=== PATIENT | female | born 1935 | race African-American/Black ===

== ENCOUNTER 2019-04-28 23:02 | Inpatient (IN) | payer MEDICARE, MEDICAID ==
[~2019-04-28] VITALS: Ht 172.7 cm; Wt 65.3 kg
[2019-04-28] MEDS ORDERED: SODIUM CHLORIDE 0.9% 1,000 ML IV ONE (23:42)
[2019-04-29] VITALS (8 sets, daily range): BP systolic 140–158; BP diastolic 68–89
[2019-04-29 00:35] LABS: BG BASE EXCESS 2.2 mmol/L (-2.0-2.0); BG CARBOXYHEMOGLOBIN 0.9 % (0.5-1.5); BG DEOXYHEMOGLOBIN 3.4 % (0.0-5.0); BG FRACTION INSPIRED OXYGEN 21; BG HCO3 ACT 26.9 mmol/L (22.0-26.0); BG METHEMOGLOBIN 0.2 % (0.0-1.5); BG OXYGEN SATURATION 96.6 % (92.0-98.5); BG OXYHEMOGLOBIN 95.5 % (94.0-97.0); BG PCO2 42.6 mmHg (35.0-45.0); BG PH 7.419 (7.350-7.450); BG PO2 79.1 mmHg (75.0-100.0); BG SAMPLE SITE RIGHT RADIAL; BG TOTAL HEMOGLOBIN 12.6 g/dL (12.0-18.0); BG VENT MODE ROOM AIR
[2019-04-29 01:18] LABS: EOSINOPHILS % 3.3 % (0.0-5.0); HEMATOCRIT. 35.7 % (36.0-48.0); HEMOGLOBIN. 11.7 g/dL (12.0-16.0); LYMPHOCYTES % 16.8 % (20.0-50.0); MEAN CORPUSCULAR VOLUME 85.3 fL (81.0-99.0); MEAN PLATELET VOLUME 8.5 fl (7.4-10.4); MONOCYTES % 8.5 % (2.0-8.0); NEUTROPHILS % 70.4 % (40.0-76.0); PLATELET 305 x1000/uL (130-400); RED BLOOD CELL COUNT 4.19 mill/uL (4.2-5.4); RED CELL DISTRIBUTION WIDTH 15.5 % (11.6-14.6)
[2019-04-29 01:24] LABS: CHLORIDE 107 mEq/L (98-107)
[2019-04-29] MEDS ORDERED: VANCOMYCIN 1 G PREMIX 200 ML IV ONE (02:00)
[2019-04-29] MEDS ORDERED: PIPERACILLIN/TAZ 3.375G PREMIX 50 ML IV ONE (02:00)
[2019-04-29 02:03] LABS: CLARITY URINE CLEAR (CLEAR); COLOR URINE YELLOW (YELLOW); KETONES URINE NEGATIVE (NEGATIVE); LEUKOCYTE ESTERASE URINE 1+ (NEGATIVE); NITRITE URINE POSITIVE (NEGATIVE); OCCULT BLOOD URINE NEGATIVE (NEGATIVE); PROTEIN URINE NEGATIVE (NEGATIVE); SPECIFIC GRAVITY URINE 1.013 (1.005-1.030)
[2019-04-29] MEDS ORDERED: ACETAMINOPHEN 325MG TABLET PO PRN (12:45)
[2019-04-29] MEDS ORDERED: ONDANSETRON HCL 4MG/2ML INJ IV PRN (12:45)
[2019-04-29] MEDS ORDERED: DEXTROSE 50% WATER 50ML SYRINGE IV PRN ×2 (12:45)
[2019-04-29] MEDS ORDERED: MAGNESIUM/ALUMINUM HYDROXIDE/SIMETHICONE 30ML UDC PO PRN (12:45)
[2019-04-29] MEDS ORDERED: HYDROCODONE/ACETAMINOPHEN 5/325MG TABLET PO PRN (12:45)
[2019-04-29] MEDS: INSULIN LISPRO 100 UNITS/ML SUBCUT SCH ×3 (13:00→21:00)
[2019-04-29] MEDS: BLOOD SUGAR DIAGNOSTIC STRIP TEST SCH ×3 (13:23→21:08)
[2019-04-29] MEDS: ENOXAPARIN 40MG/0.4ML SYR SUBCUT SCH (13:23)
[2019-04-29] MEDS: SODIUM CHLORIDE 0.9% 1,000 ML IV SCH (13:23)
[2019-04-29] MEDS ORDERED: LEVOFLOXACIN 500MG PREMIX 100 ML IV SCH ×2 (17:15→20:00)
[2019-04-29 19:56] LABS: *AMPHETAMINES SCREEN URINE NEGATIVE (NEGATIVE); *BARBITURATES SCREEN URINE NEGATIVE (NEGATIVE); *BENZODIAZEPINES SCREEN URINE NEGATIVE (NEGATIVE); *COCAINE SCREEN URINE NEGATIVE (NEGATIVE)
[2019-04-29 19:57] LABS: CANNABINOID URINE SCREEN NEGATIVE (NEGATIVE); METHADONE URINE SCREEN NEGATIVE (NEGATIVE); OPIATES URINE SCREEN NEGATIVE (NEGATIVE); PHENCYCLIDINE URINE SCREEN NEGATIVE (NEGATIVE)
[2019-04-30] VITALS (12 sets, daily range): BP systolic 121–169; BP diastolic 69–94
[2019-04-30] MEDS: CLONIDINE 0.1MG TABLET PO PRN (04:47)
[2019-04-30] MEDS: SODIUM CHLORIDE 0.9% 1,000 ML IV SCH (05:41)
[2019-04-30 06:28] LABS: EOSINOPHILS % 3.9 % (0.0-5.0); HEMATOCRIT. 36.4 % (36.0-48.0); HEMOGLOBIN. 11.8 g/dL (12.0-16.0); LYMPHOCYTES % 21.7 % (20.0-50.0); MEAN CORPUSCULAR VOLUME 86.1 fL (81.0-99.0); MEAN PLATELET VOLUME 8.6 fl (7.4-10.4); MONOCYTES % 8.9 % (2.0-8.0); NEUTROPHILS % 64.5 % (40.0-76.0); PLATELET 318 x1000/uL (130-400); RED BLOOD CELL COUNT 4.23 mill/uL (4.2-5.4); RED CELL DISTRIBUTION WIDTH 15.7 % (11.6-14.6)
[2019-04-30 06:30] LABS: CHLORIDE 107 mEq/L (98-107)
[2019-04-30 06:41] LABS: PHOSPHORUS 2.7 mg/dL (2.5-4.9)
[2019-04-30 06:42] LABS: LDL CHOLESTEROL 118 mg/dL (5-100)
[2019-04-30 06:43] LABS: HDL CHOLESTEROL 62 mg/dL (40-59)
[2019-04-30] MEDS: BLOOD SUGAR DIAGNOSTIC STRIP TEST SCH ×4 (07:49→20:44)
[2019-04-30] MEDS: INSULIN LISPRO 100 UNITS/ML SUBCUT SCH ×4 (07:50→20:43)
[2019-04-30] MEDS: ENOXAPARIN 40MG/0.4ML SYR SUBCUT SCH (09:22)
[2019-04-30] MEDS ORDERED: INFLUENZA VIRUS VACCINE(AFLURIA) 0.5ML SYR IM ONE (10:00)
[2019-04-30] MEDS: LEVOFLOXACIN 250MG PREMIX 50 ML IV SCH (11:18)
[2019-04-30] MEDS: AMLODIPINE 5MG TABLET PO SCH (12:43)
[2019-04-30] MEDS: CLONIDINE 0.1MG TABLET PO SCH ×2 (14:08→20:44)
[2019-04-30] MEDS: MEMANTINE HCL 10MG TABLET PO SCH (20:52)
[2019-05-01] VITALS (12 sets, daily range): BP systolic 118–183; BP diastolic 71–99
[2019-05-01] MEDS: CLONIDINE 0.1MG TABLET PO PRN (03:39)
[2019-05-01 05:56] LABS: CHLORIDE 107 mEq/L (98-107)
[2019-05-01 06:13] LABS: EOSINOPHILS % 3.2 % (0.0-5.0); HEMATOCRIT. 33.6 % (36.0-48.0); HEMOGLOBIN. 10.8 g/dL (12.0-16.0); LYMPHOCYTES % 23.4 % (20.0-50.0); MEAN CORPUSCULAR HEMOGLOBIN 27.5 pg (28.0-32.0); MEAN CORPUSCULAR VOLUME 85.7 fL (81.0-99.0); MEAN PLATELET VOLUME 8.4 fl (7.4-10.4); MONOCYTES % 10.7 % (2.0-8.0); NEUTROPHILS % 61.7 % (40.0-76.0); PLATELET 312 x1000/uL (130-400); RED BLOOD CELL COUNT 3.92 mill/uL (4.2-5.4); RED CELL DISTRIBUTION WIDTH 15.4 % (11.6-14.6)
[2019-05-01] MEDS: CLONIDINE 0.1MG TABLET PO SCH ×3 (06:15→21:08)
[2019-05-01] MEDS: INSULIN LISPRO 100 UNITS/ML SUBCUT SCH ×4 (08:00→21:00)
[2019-05-01] MEDS: MEMANTINE HCL 10MG TABLET PO SCH ×2 (08:02→20:36)
[2019-05-01] MEDS: AMLODIPINE 5MG TABLET PO SCH (08:02)
[2019-05-01] MEDS: BLOOD SUGAR DIAGNOSTIC STRIP TEST SCH ×4 (08:02→21:07)
[2019-05-01] MEDS: PANTOPRAZOLE 40MG DR TABLET PO SCH (08:02)
[2019-05-01] MEDS: ENOXAPARIN 40MG/0.4ML SYR SUBCUT SCH ×3 (08:03→08:20)
[2019-05-01] MEDS: LEVOFLOXACIN 250MG PREMIX 50 ML IV SCH (10:26)
[2019-05-01] MEDS: METRONIDAZOLE 500 MG PREMIX 100 ML IV SCH ×2 (11:55→20:36)
[2019-05-02] VITALS (16 sets, daily range): BP systolic 88–152; BP diastolic 53–88
[2019-05-02] MEDS: METRONIDAZOLE 500 MG PREMIX 100 ML IV SCH ×3 (04:30→20:48)
[2019-05-02] MEDS: PANTOPRAZOLE 40MG DR TABLET PO SCH (06:13)
[2019-05-02] MEDS: CLONIDINE 0.1MG TABLET PO SCH ×3 (06:13→22:12)
[2019-05-02] MEDS: BLOOD SUGAR DIAGNOSTIC STRIP TEST SCH ×4 (06:19→20:41)
[2019-05-02 07:17] LABS: BASOPHILS % 1.5 % (0.0-2.0); EOSINOPHILS % 4.8 % (0.0-5.0); HEMATOCRIT. 36.6 % (36.0-48.0); LYMPHOCYTES % 27.3 % (20.0-50.0); MEAN CORPUSCULAR HEMOGLOBIN 28.4 pg (28.0-32.0); MEAN CORPUSCULAR VOLUME 86.7 fL (81.0-99.0); MEAN PLATELET VOLUME 8.2 fl (7.4-10.4); MONOCYTES % 10.6 % (2.0-8.0); NEUTROPHILS % 55.8 % (40.0-76.0); PLATELET 293 x1000/uL (130-400); RED BLOOD CELL COUNT 4.22 mill/uL (4.2-5.4); RED CELL DISTRIBUTION WIDTH 15.7 % (11.6-14.6)
[2019-05-02 07:51] LABS: CHLORIDE 106 mEq/L (98-107)
[2019-05-02] MEDS: MEMANTINE HCL 10MG TABLET PO SCH ×2 (09:26→20:48)
[2019-05-02] MEDS: AMLODIPINE 5MG TABLET PO SCH (09:27)
[2019-05-02] MEDS: ENOXAPARIN 40MG/0.4ML SYR SUBCUT SCH (09:27)
[2019-05-02] MEDS: INSULIN LISPRO 100 UNITS/ML SUBCUT SCH ×3 (12:29→20:41)
[2019-05-02] MEDS: LEVOFLOXACIN 250MG PREMIX 50 ML IV SCH (12:31)
[2019-05-03] VITALS (12 sets, daily range): BP systolic 96–131; BP diastolic 36–79
[2019-05-03] MEDS: METRONIDAZOLE 500 MG PREMIX 100 ML IV SCH ×3 (03:22→19:26)
[2019-05-03] MEDS: CLONIDINE 0.1MG TABLET PO SCH ×3 (05:28→21:08)
[2019-05-03 07:22] LABS: BASOPHILS % 1.2 % (0.0-2.0); EOSINOPHILS % 5.8 % (0.0-5.0); HEMATOCRIT. 33.8 % (36.0-48.0); LYMPHOCYTES % 23.6 % (20.0-50.0); MEAN CORPUSCULAR HEMOGLOBIN 28.5 pg (28.0-32.0); MEAN CORPUSCULAR VOLUME 88.2 fL (81.0-99.0); MEAN PLATELET VOLUME 8.2 fl (7.4-10.4); MONOCYTES % 10.5 % (2.0-8.0); NEUTROPHILS % 58.9 % (40.0-76.0); PLATELET 274 x1000/uL (130-400); RED BLOOD CELL COUNT 3.84 mill/uL (4.2-5.4); RED CELL DISTRIBUTION WIDTH 15.9 % (11.6-14.6)
[2019-05-03] MEDS: BLOOD SUGAR DIAGNOSTIC STRIP TEST SCH ×4 (07:48→21:00)
[2019-05-03] MEDS: INSULIN LISPRO 100 UNITS/ML SUBCUT SCH ×4 (07:48→21:00)
[2019-05-03 07:50] LABS: CHLORIDE 107 mEq/L (98-107)
[2019-05-03] MEDS: MEMANTINE HCL 10MG TABLET PO SCH ×2 (08:56→21:01)
[2019-05-03] MEDS: FAMOTIDINE 20MG TABLET PO SCH (08:56)
[2019-05-03] MEDS: ENOXAPARIN 40MG/0.4ML SYR SUBCUT SCH (08:57)
[2019-05-03] MEDS: AMLODIPINE 5MG TABLET PO SCH (08:57)
[2019-05-03] MEDS: LEVOFLOXACIN 250MG PREMIX 50 ML IV SCH (10:30)
[2019-05-04] VITALS (11 sets, daily range): BP systolic 105–180; BP diastolic 54–105
[2019-05-04] MEDS: METRONIDAZOLE 500 MG PREMIX 100 ML IV SCH ×2 (04:23→12:48)
[2019-05-04] MEDS: CLONIDINE 0.1MG TABLET PO PRN (04:24)
[2019-05-04] MEDS: CLONIDINE 0.1MG TABLET PO SCH ×2 (05:29→15:01)
[2019-05-04] MEDS: BLOOD SUGAR DIAGNOSTIC STRIP TEST SCH ×3 (07:30→17:30)
[2019-05-04] MEDS: INSULIN LISPRO 100 UNITS/ML SUBCUT SCH ×3 (08:00→17:40)
[2019-05-04] MEDS: AMLODIPINE 5MG TABLET PO SCH (09:12)
[2019-05-04] MEDS: MEMANTINE HCL 10MG TABLET PO SCH (09:12)
[2019-05-04] MEDS: FAMOTIDINE 20MG TABLET PO SCH (09:12)
[2019-05-04] MEDS: ENOXAPARIN 40MG/0.4ML SYR SUBCUT SCH (09:13)
[2019-05-04] MEDS: LEVOFLOXACIN 250MG PREMIX 50 ML IV SCH (11:39)
[2019-05-04 14:36] LABS: BASOPHILS % 1.1 % (0.0-2.0); EOSINOPHILS % 3.1 % (0.0-5.0); HEMATOCRIT. 34.6 % (36.0-48.0); HEMOGLOBIN. 11.3 g/dL (12.0-16.0); LYMPHOCYTES % 18.5 % (20.0-50.0); MEAN CORPUSCULAR VOLUME 85.6 fL (81.0-99.0); MEAN PLATELET VOLUME 8.3 fl (7.4-10.4); MONOCYTES % 9.3 % (2.0-8.0); PLATELET 274 x1000/uL (130-400); RED BLOOD CELL COUNT 4.04 mill/uL (4.2-5.4); RED CELL DISTRIBUTION WIDTH 16.1 % (11.6-14.6)
[2019-05-04 14:37] LABS: CHLORIDE 107 mEq/L (98-107)
== END 2019-05-04 19:22 | DRG 871 ==
LOC: ER 23:02 → EDBEDREQ 04-29 02:18 → EDBEDREQTM 04-29 02:18 → EDBEDREQDT 04-29 02:18 → ENRESERV 04-29 07:18 → 5EST 04-29 08:51
PROVIDERS: ADMIT Family Medicine Adult Medicine; ATTEND Family Medicine Adult Medicine
PROC: 4A00X4Z Measurement of Central Nervous Electrical Activity, External Approach (ICD-10-PCS; principal; 2019-05-01)
DX: A41.9 Sepsis, unspecified organism (principal); J18.9 Pneumonia, unspecified organism; J96.00 Acute respiratory failure, unspecified whether with hypoxia or hypercapnia; G93.41 Metabolic encephalopathy; G82.50 Quadriplegia, unspecified; N39.0 Urinary tract infection, site not specified; E11.9 Type 2 diabetes mellitus without complications; I10 Essential (primary) hypertension; F03.90 Unspecified dementia, unspecified severity, without behavioral disturbance, psychotic disturbance, mood disturbance, and anxiety; E11.36 Type 2 diabetes mellitus with diabetic cataract; E78.00 Pure hypercholesterolemia, unspecified; E78.5 Hyperlipidemia, unspecified; H54.8 Legal blindness, as defined in USA; R13.10 Dysphagia, unspecified; Z82.49 Family history of ischemic heart disease and other diseases of the circulatory system; Z98.49 Cataract extraction status, unspecified eye
CPT/HCPCS: 36415; 36600; 51702; 70551; 71045; 80048; 80061; 80305; 81003; 82140; 82375; 82805; 82962; 83036; 83605; 83735; 84100; 84145; 84443; 84484; 90686; 92610; 93005; 93970; 96361; 96366; 96368; 97162; 97166; 99291; A6261; J1650; J1815; J1956; J2543; J3370; J3490; J7030

== ENCOUNTER 2022-12-24 16:34 | Inpatient (IN) | payer MEDICARE, MEDICAID ==
[~2022-12-24] VITALS: Ht 165.1 cm; Wt 61.7 kg
[2022-12-24] MEDS ORDERED: SODIUM CHLORIDE 0.9% 1,000 ML IV ONE (18:15)
[2022-12-24 19:06] LABS: EOSINOPHILS % 2.8 % (0.0-5.0); HEMATOCRIT. 38.5 % (36.0-48.0); HEMOGLOBIN. 12.3 g/dL (12.0-16.0); LYMPHOCYTES % 34.2 % (20.0-50.0); MEAN CORPUSCULAR HEMOGLOBIN 27.7 pg (28.0-32.0); MEAN CORPUSCULAR VOLUME 86.6 fL (81.0-99.0); MEAN PLATELET VOLUME 9.1 fl (7.4-10.4); MONOCYTES % 9.2 % (2.0-8.0); NEUTROPHILS % 52.8 % (40.0-76.0); PLATELET 233 x1000/uL (130-400); RED BLOOD CELL COUNT 4.45 mill/uL (4.2-5.4); RED CELL DISTRIBUTION WIDTH 16.3 % (11.6-14.6)
[2022-12-24 19:12] LABS: CHLORIDE 108 mEq/L (98-107)
[2022-12-24 19:14] LABS: PROTHROMBIN TIME 10.5 sec (9.6-11.0)
[2022-12-24 19:26] LABS: CLARITY URINE CLOUDY (CLEAR); COLOR URINE YELLOW (YELLOW); KETONES URINE NEGATIVE (NEGATIVE); LEUKOCYTE ESTERASE URINE 1+ (NEGATIVE); NITRITE URINE POSITIVE (NEGATIVE); OCCULT BLOOD URINE 2+ (NEGATIVE); PH URINE 5.5 (4.5-8.0); PROTEIN URINE NEGATIVE (NEGATIVE)
[2022-12-24] MEDS: CEFTRIAXONE 1GM PREMIX 50 ML IV ONE (20:47)
[2022-12-25] MEDS ORDERED: HYDRALAZINE 20MG/ML VIAL IV PRN (00:45)
[2022-12-25] MEDS ORDERED: CEFTRIAXONE 1GM PREMIX 50 ML IV SCH (02:00)
[2022-12-25] MEDS ORDERED: ONDANSETRON HCL 4MG/2ML INJ IV PRN (02:00)
[2022-12-25] MEDS ORDERED: DIPHENHYDRAMINE 50MG/ML VIAL IV PRN (02:00)
[2022-12-25] MEDS ORDERED: GUAIFENESIN 200MG/10ML SUGAR FREE UDC PO PRN (02:00)
[2022-12-25] MEDS ORDERED: ACETAMINOPHEN 325MG TABLET PO PRN ×2 (02:00)
[2022-12-25] MEDS ORDERED: MVI, ADULT NO.1 10 ML, FOLIC ACID 1 MG, THIAMINE HCL 100 MG in SODIUM CHLORIDE 0.9% 1,0... IV NR ×4 (02:00)
[2022-12-25] MEDS ORDERED: IPRATROPIUM/ALBUTEROL 0.5-3(2.5)MG/3ML NEB NEB PRN (02:00)
[2022-12-25] MEDS ORDERED: MAGNESIUM/ALUMINUM HYDROXIDE/SIMETHICONE 30ML UDC PO PRN (02:00)
[2022-12-25] MEDS: CLONIDINE 0.1MG TABLET PO PRN (03:54)
[2022-12-25 08:00] VITALS: BP 155/78; PULSE 78; PULSE 83; RESP 18; TEMP 97.6
[2022-12-25] MEDS ORDERED: LOSARTAN POTASSIUM 50 MG TABLET PO SCH (09:00)
[2022-12-25] MEDS: AMLODIPINE 5MG TABLET PO SCH (09:36)
[2022-12-25] MEDS: DOCUSATE SODIUM 100MG CAPSULE PO SCH ×2 (09:37→17:24)
[2022-12-25] MEDS: ASPIRIN 81MG EC TABLET PO SCH (09:37)
[2022-12-25] MEDS: ENOXAPARIN 40MG/0.4ML SYR SUBCUT SCH (09:38)
[2022-12-25] MEDS ORDERED: CEFTRIAXONE 1,000 MG in DEXTROSE 5% WATER 50 ML IV SCH (10:00)
[2022-12-25 12:00] VITALS: BP 126/84; PULSE 89; RESP 14; TEMP 97
[2022-12-25 16:00] VITALS: BP 107/51; PULSE 67; RESP 18; TEMP 96.8
[2022-12-25 20:00] VITALS: BP 136/60; PULSE 59; RESP 20; TEMP 97.5
[2022-12-26] VITALS: BP 129/65; PULSE 61; RESP 20; TEMP 98.2
[2022-12-26] MEDS: CEFTRIAXONE 1,000 MG in DEXTROSE 5% WATER 50 ML IV SCH ×2 (01:11→20:56)
[2022-12-26 04:00] VITALS: BP 155/56; PULSE 63; RESP 18; TEMP 98.2
[2022-12-26 08:00] VITALS: BP 182/90; PULSE 61; RESP 18; TEMP 95
[2022-12-26] MEDS: DOCUSATE SODIUM 100MG CAPSULE PO SCH ×2 (09:00→17:03)
[2022-12-26] MEDS: ASPIRIN 81MG EC TABLET PO SCH (09:00)
[2022-12-26] MEDS: MEGESTROL ACETATE 400 MG/10 ML UDC PO SCH ×2 (09:00→17:02)
[2022-12-26] MEDS: AMLODIPINE 5MG TABLET PO SCH (09:00)
[2022-12-26] MEDS: LOSARTAN POTASSIUM 50 MG TABLET PO SCH (09:00)
[2022-12-26] MEDS: HYDRALAZINE 20MG/ML VIAL IV PRN (09:37)
[2022-12-26] MEDS: ENOXAPARIN 40MG/0.4ML SYR SUBCUT SCH (09:37)
[2022-12-26 12:00] VITALS: BP 133/68; PULSE 66; RESP 18; TEMP 99.1
[2022-12-26] MEDS: DEXT 5%/0.9% NACL 1,000 ML IV SCH (13:12)
[2022-12-26 16:00] VITALS: BP 117/84; PULSE 78; RESP 18; TEMP 98.6
[2022-12-27] VITALS: BP 160/85; PULSE 64; RESP 17; TEMP 97.2
[2022-12-27 04:00] VITALS: BP 190/69; PULSE 84; RESP 17; TEMP 97.5
[2022-12-27] MEDS: HYDRALAZINE 20MG/ML VIAL IV PRN (04:31)
[2022-12-27 06:42] LABS: BASOPHILS % 0.8 % (0.0-2.0); EOSINOPHILS % 2.7 % (0.0-5.0); HEMATOCRIT. 39.6 % (36.0-48.0); LYMPHOCYTES % 23.7 % (20.0-50.0); MEAN CORPUSCULAR HEMOGLOBIN 27.7 pg (28.0-32.0); MEAN CORPUSCULAR VOLUME 84.3 fL (81.0-99.0); MEAN PLATELET VOLUME 10.2 fl (7.4-10.4); MONOCYTES % 6.2 % (2.0-8.0); NEUTROPHILS % 66.6 % (40.0-76.0); PLATELET 252 x1000/uL (130-400); RED CELL DISTRIBUTION WIDTH 15.8 % (11.6-14.6)
[2022-12-27 06:44] LABS: PROTHROMBIN TIME 10.8 sec (9.6-11.0)
[2022-12-27 06:52] LABS: CHLORIDE 111 mEq/L (98-107)
[2022-12-27 08:00] VITALS: BP 166/75; PULSE 70; RESP 20; TEMP 97.5
[2022-12-27] MEDS: ASPIRIN 81MG EC TABLET PO SCH (09:06)
[2022-12-27] MEDS: MEGESTROL ACETATE 400 MG/10 ML UDC PO SCH ×2 (09:06→17:59)
[2022-12-27] MEDS: AMLODIPINE 5MG TABLET PO SCH (09:07)
[2022-12-27] MEDS: DOCUSATE SODIUM 100MG CAPSULE PO SCH ×2 (09:07→17:59)
[2022-12-27] MEDS: ENOXAPARIN 40MG/0.4ML SYR SUBCUT SCH (09:07)
[2022-12-27] MEDS: LOSARTAN POTASSIUM 50 MG TABLET PO SCH (09:07)
[2022-12-27 12:00] VITALS: BP 165/74; PULSE 60; RESP 20; TEMP 98
[2022-12-27] MEDS ORDERED: POTASSIUM CHLORIDE INJ 40 MEQ in DEXT 5% WATER 250 ML IV NR (12:00)
[2022-12-27] MEDS: CLONIDINE 0.1MG TABLET PO PRN (14:23)
[2022-12-27 16:00] VITALS: BP 156/80; PULSE 72; RESP 20; TEMP 97.5
[2022-12-27 20:00] VITALS: BP 148/54; PULSE 53; RESP 16; TEMP 96.9
[2022-12-27] MEDS: CEFTRIAXONE 1,000 MG in DEXTROSE 5% WATER 50 ML IV SCH (21:11)
[2022-12-27] MEDS: DEXT 5%/0.9% NACL 1,000 ML IV SCH (21:12)
[2022-12-28] VITALS: BP 171/60; PULSE 53; RESP 18; TEMP 96.8
[2022-12-28 03:55] LABS: BASOPHILS % 0.6 % (0.0-2.0); EOSINOPHILS % 1.2 % (0.0-5.0); HEMATOCRIT. 38.1 % (36.0-48.0); HEMOGLOBIN. 12.3 g/dL (12.0-16.0); LYMPHOCYTES % 13.2 % (20.0-50.0); MEAN CORPUSCULAR HEMOGLOBIN 27.2 pg (28.0-32.0); MEAN CORPUSCULAR VOLUME 84.5 fL (81.0-99.0); MEAN PLATELET VOLUME 9.6 fl (7.4-10.4); MONOCYTES % 9.1 % (2.0-8.0); NEUTROPHILS % 75.9 % (40.0-76.0); PLATELET 250 x1000/uL (130-400); RED BLOOD CELL COUNT 4.51 mill/uL (4.2-5.4)
[2022-12-28 03:59] LABS: CHLORIDE 112 mEq/L (98-107)
[2022-12-28 04:00] VITALS: BP 162/57; PULSE 52; RESP 16; TEMP 96.8
[2022-12-28 04:09] LABS: PROTHROMBIN TIME 10.6 sec (9.6-11.0)
[2022-12-28 08:02] VITALS: BP 184/71; PULSE 65; RESP 18; TEMP 97.5
[2022-12-28] MEDS: AMLODIPINE 5MG TABLET PO SCH (08:41)
[2022-12-28] MEDS: LOSARTAN POTASSIUM 50 MG TABLET PO SCH (08:41)
[2022-12-28] MEDS: MEGESTROL ACETATE 400 MG/10 ML UDC PO SCH ×2 (08:42→16:52)
[2022-12-28] MEDS: DOCUSATE SODIUM 100MG CAPSULE PO SCH ×2 (08:42→16:52)
[2022-12-28 12:00] VITALS: BP 136/72; PULSE 62; RESP 18; TEMP 97.7
[2022-12-28] MEDS ORDERED: PROPOFOL 200MG/20ML VIAL IV ONE (12:47)
[2022-12-28] MEDS: DEXT 5%/0.9% NACL 1,000 ML IV SCH (12:49)
[2022-12-28] MEDS ORDERED: CEFAZOLIN SODIUM 1000MG/VIAL ONE (13:18)
[2022-12-28] MEDS ORDERED: EPHEDRINE SULFATE 50MG/ML VIAL ONE (13:18)
[2022-12-28 16:00] VITALS: BP 185/62; PULSE 55; RESP 18; TEMP 97.4
[2022-12-28] MEDS: HYDRALAZINE 20MG/ML VIAL IV PRN (16:52)
[2022-12-28] MEDS: CEFTRIAXONE 1,000 MG in DEXTROSE 5% WATER 50 ML IV SCH (19:53)
[2022-12-28 20:00] VITALS: BP 138/61; PULSE 63; RESP 16; TEMP 96.9
[2022-12-29] VITALS: BP 129/58; PULSE 76; RESP 16; TEMP 96.9
[2022-12-29] MEDS: DEXT 5%/0.9% NACL 1,000 ML IV SCH ×2 (03:10→17:15)
[2022-12-29 04:00] VITALS: BP 129/62; PULSE 52; RESP 16; TEMP 96.8
[2022-12-29 08:00] VITALS: BP 144/74; PULSE 72; RESP 18; TEMP 97.4
[2022-12-29] MEDS: LOSARTAN POTASSIUM 50 MG TABLET PO SCH (08:46)
[2022-12-29] MEDS: DOCUSATE SODIUM 100MG CAPSULE PO SCH ×2 (08:46→17:14)
[2022-12-29] MEDS: ASPIRIN 81MG EC TABLET PO SCH (08:46)
[2022-12-29] MEDS: ENOXAPARIN 40MG/0.4ML SYR SUBCUT SCH (08:47)
[2022-12-29] MEDS: MEGESTROL ACETATE 400 MG/10 ML UDC PO SCH ×2 (08:47→17:14)
[2022-12-29] MEDS: AMLODIPINE 5MG TABLET PO SCH (08:47)
[2022-12-29 12:00] VITALS: BP 154/73; PULSE 71; RESP 18; TEMP 97.8
[2022-12-29 15:48] VITALS: BP 154/73; PULSE 71; TEMP 97.8; O2SAT 99
[2022-12-29 16:00] VITALS: BP 153/78; PULSE 83; RESP 18; TEMP 98.2
== END 2022-12-29 18:49 | DRG 377 ==
LOC: ER 16:34 → EDBEDREQTM 19:17 → EDBEDREQSVC 19:17 → EDBEDREQ 19:17 → EDBEDREQSVC 21:48 → MICUSO 12-25 00:07 → 8WST 12-25 08:13
PROVIDERS: ADMIT Internal Medicine; ATTEND Internal Medicine
PROC: 0DJ68ZZ Inspection of Stomach, Via Natural or Artificial Opening Endoscopic (ICD-10-PCS; principal; 2022-12-28)
PROC: 0DH63UZ Insertion of Feeding Device into Stomach, Percutaneous Approach (ICD-10-PCS; 2022-12-28)
DX: K29.01 Acute gastritis with bleeding (principal); E41 Nutritional marasmus; N39.0 Urinary tract infection, site not specified; R62.7 Adult failure to thrive; Z68.22 Body mass index [BMI] 22.0-22.9, adult; I10 Essential (primary) hypertension; F03.90 Unspecified dementia, unspecified severity, without behavioral disturbance, psychotic disturbance, mood disturbance, and anxiety; E11.9 Type 2 diabetes mellitus without complications; R63.0 Anorexia; Z20.822 Contact with and (suspected) exposure to COVID-19; R13.10 Dysphagia, unspecified; R47.02 Dysphasia; S90.31XA Contusion of right foot, initial encounter; Z74.01 Bed confinement status; Z90.710 Acquired absence of both cervix and uterus; Z93.1 Gastrostomy status; Z95.0 Presence of cardiac pacemaker; X58.XXXA Exposure to other specified factors, initial encounter; Y93.89 Activity, other specified; Y92.89 Other specified places as the place of occurrence of the external cause; Y99.8 Other external cause status
CPT/HCPCS: 36415; 71045; 76705; 80048; 80053; 81003; 84443; 84484; 85025; 86850; 86900; 87426; 92610; 99285; J0360; J0690; J0696; J1200; J1650; J2704; J3411; J3480; J3490; J7030; J7042; J7060; A4315